=== PATIENT | female | born 1965 | race Caucasian/White ===

== ENCOUNTER 2018-10-05 07:05 | Day surgery (SDC) | payer BC ==
[~2018-10-05] VITALS: Ht 160 cm; Wt 63.5 kg
[~2018-10-05 07:05] MED LIST: CEFAZOLIN SOD 1 GM in D5W 50 ML IV ONE
[2018-10-05 07:42] LABS: HCG,QUAL RESULT NEGATIVE (NEGATIVE)
[2018-10-05] MEDS ORDERED: fentaNYL CITRATE/PF 100 MCG/2 ML AMP IVP ONE (09:50)
[2018-10-05] MEDS ORDERED: NS IRRIG SOLN 1000 ML IR ONE (09:50)
[2018-10-05] MEDS ORDERED: PROPOFOL 200MG/ 20ML VIAL (DIPRIVAN) IV ONE (09:50)
[2018-10-05] MEDS ORDERED: SEVOFLURANE 15 MIN GAS INH ONE (09:50)
[2018-10-05] MEDS ORDERED: BUPIVACAINE /PF 0.25% 30 ML VIAL INJ ONE (09:50)
[2018-10-05] MEDS ORDERED: ONDANSETRON HCL 4 MG/2 ML VIAL IVP ONE (09:50)
[2018-10-05] MEDS ORDERED: METHYLERGONOVINE MALEATE 0.2 MG/ML AMP IM ONE (09:50)
[2018-10-05] MEDS ORDERED: MIDAZOLAM HCL 5 MG/5 ML VIAL IVP ONE (09:50)
[2018-10-05] MEDS ORDERED: WATER FOR IRRIGATION,STERILE 1,000 ML IRRIG.SOLN IR ONE (09:50)
[2018-10-05] MEDS ORDERED: LR 1,000 ML IV SCH (10:23)
[2018-10-05] MEDS ORDERED: MORPHINE 4 MG/ML INJ. SYRINGE IVP PRN ×3 (10:30)
[2018-10-05] MEDS ORDERED: METOCLOPRAMIDE HCL 10 MG/2 ML VIAL IVP PRN (10:30)
[2018-10-05] MEDS ORDERED: D5/0.45 NS 1,000 ML IV SCH (11:05)
[2018-10-05] MEDS ORDERED: HYDROcodone/ACETAMIN 5-325 MG TAB (NORCO/ VICODIN) PO PRN ×2 (11:15)
[2018-10-05] MEDS ORDERED: HYDROmorphone 1 MG INJ. 1 MG/ML AMPUL IVP PRN (11:15)
[2018-10-05 13:44] VITALS: BP_SYST 118
== END 2018-10-05 13:10 | disposition home or self-care (01) ==
LOC: SDS 07:05 → SMU 07:05 → EDSTATUS 08:35 → SDS 13:10
PROVIDERS: ATTEND Colon & Rectal Surgery
DX: C50.912 Malignant neoplasm of unspecified site of left female breast (principal); R59.0 Localized enlarged lymph nodes; E03.9 Hypothyroidism, unspecified; Z79.899 Other long term (current) drug therapy
CPT/HCPCS: 19281; 19301; 38525; 76098; 78195; 84703; 88305; 88309; 88329; 88333; A9541; J0690; J2210; J2250; J2405; J2704; J3010; J3490; J7060; J7120; 88307